=== PATIENT | male | born 1970 | race Caucasian/White ===

== ENCOUNTER 2018-10-27 13:20 | Emergency (ER) | payer BC ==
[2018-10-27] MEDS ORDERED: ETOMIDATE 20 MG/10 ML VIAL IV ONE (13:21)
[2018-10-27] MEDS ORDERED: LIDOCAINE 2% MPF 5 ML VIAL IJ ONE (13:21)
[2018-10-27] MEDS ORDERED: ROCURONIUM 50 MG/5 ML VIAL IV ONE (13:29)
[2018-10-27] MEDS ORDERED: RSI MEDICATION KIT IV ONE (13:29)
--- NOTE | 2018-10-27 14:01 | ER ---
Nurse's Notes [facility] Name: Los Burt Age: 48 yrs Sex: Male : 1970 Arrival Date: 10/27/2018 Time: 13:23 Bed 2 Private MD: Diagnosis: Subdural hematoma Presentation: 10/27 13:20 Presenting complaint: EMS states: pt was found laying down faceup by a family sg friend/technical information specialist, head bleeding and dried pool of blood beside the patient, pt was last seen normal at 1430 10/26/2018 by family/friend per EMS, unsure how long the patient had been down. Family/friend reports to EMS a histor of liver disease and chronic alcoholism, noncompliant on his prescription medications per family/friends reported by EMS. 13:20 Method Of Arrival: EMS: [facility] 13:20 Transition of care: patient was not received from another setting of care. Onset of sg symptoms was October 27, 2018. Risk Assessment: Do you want to hurt yourself or someone else? Unable to obtain. Initial Sepsis Screen: Does the patient meet any 2 criteria? Altered Mental Status. HR > 90 bpm. Does the patient have a suspected source of infection? No. Patient's initial sepsis screen is negative. Care prior to arrival: IV initiated. 18 GA, in the left antecubital area, Glucose check: 131. Mechanism of Injury: Fall unknown, unwitnessed. 13:20 Acuity: RAVIN 1 sg Triage Assessment: 13:20 General: Appears distressed, unkempt, Behavior is unresponsive. Pain: Unable to use sg pain scale. Patient is unresponsive. EENT: Oral mucosa is dry. Neuro: Level of Consciousness is obtunded, unresponsive. Cardiovascular: Heart tones S1 S2 present Capillary refill is sluggish in bilateral fingers. Respiratory: Airway is patent Respiratory effort is relaxed, shallow, Respiratory pattern is hypoventilation. GI: Abdomen is flat, non-distended. : Genitalia appear normal. Derm: Skin is dry, Skin is pale, Skin temperature is cool. Musculoskeletal: Swelling present in left occipital area and right occipital area. Injury Description: Bruise sustained to chest and right arm is green, purple, yellow, Laceration sustained to right occipital area is jagged, 0.5 to 2.5 cm long, not bleeding, is bleeding profusely at this time. Historical: - Allergies: 14:14 Unable to obtain; ss - Home Meds: 14:14 Unable to obtain [Active]; ss - PMHx: 14:50 Cancer; sg - PSHx: 14:14 Unable to obtain; ss - Immunization history:: Adult Immunizations unknown. - Social history:: Smoking status: unknown. - Ebola Screening: : Unable to complete screening because. - Unable to obtain history due to: comatose state. Screenin:48 Abuse screen: unknwon. Nutritional screening: unknown. Tuberculosis screening: unknown. sv Fall Risk No fall in past 12 months (0 pts). No secondary diagnosis (0 pts). IV access (20 points). Ambulatory Aid- None/Bed Rest/Nurse Assist (0 pts). Gait- Impaired (20 pts.). Mental Status- Overestimates/Forgets Limitations (15 pts.). Total Bobby Fall Scale indicates High Risk Score (45 or more points). Fall prevention measures have been instituted. Side Rails Up X 2 Placed Close to Nursing Station Frequent Obs/Assessments Occuring As available patient and family educated on Fall Prevention Program and Strategies. Assessment: 13:25 Reassessment: Patient appears in no apparent distress at this time. pt remains sg unresponsive at this time, preparing for intubation at this time, awaiting transfer to CT scan after intubation per order. 13:40 Reassessment: Patient appears in no apparent distress at this time. No changes from previously documented assessment. 14:15 Reassessment: Patient appears in no apparent distress at this time. Patient and/or sg family updated on plan of care and expected duration. Pain level reassessed. pt mother and pt family at bedside at this time, will continue to monitor. 14:20 Reassessment: [facility] dispatch reports that their ETA is 25 minutes. sv 14:30 Reassessment: Patient appears in no apparent distress at this time. pt mother at bedside at this time, pt speaking with about pt condition, pt remains orally intubated and sedated at this time. 14:50 General: Appears distressed, well groomed, well developed, well nourished, Behavior is sg unresponsive. Neuro: Level of Consciousness is unresponsive, Pupils are sluggish, dilated. Cardiovascular: Patient's skin is warm and dry. Respiratory: Airway via oral intubation Respiratory effort is relaxed, Respiratory pattern is symmetrical. : Mcdermott in place Urine is clear, 1000 mL output noted, mcdermott clamped at this time. Derm: Skin is pale, dried blood noted to head, face. 14:56 Reassessment: [facility] at bedside for pt transfer to receiving facility ER, report sg given to flight nurse. Vital Signs: 13:17 BP 111 / 72; Pulse 111; Resp 20; Pulse Ox 100% on R/A; sv 13:28 BP 99 / 70; Pulse 128; Resp 20; Temp 99.2(C); Pulse Ox 100% on ETT ambu; sv 13:45 BP 102 / 71; Pulse 131; Resp 20; Pulse Ox 100% on 60% FiO2 ETT vent; sv 13:58 Weight 68.04 kg; ss 14:00 BP 106 / 75; Pulse 110; Resp 24; Temp 100.3; Pulse Ox 100% on 60% FiO2 ETT vent; sv 14:13 BP 106 / 75; Pulse 111; Pulse Ox 100% on ETT vent; ss 14:15 BP 107 / 71; Pulse 112; Resp 24; Temp 100.4(C); Pulse Ox 100% on 60% FiO2 ETT vent; sv 14:47 BP 111 / 81; Pulse 106; Resp 24; Temp 100.5(C); Pulse Ox 100% on 60% FiO2 ETT vent; sv ED Course: 13:22 Rigid cervical collar applied and checked by physician. sg 13:23 Patient arrived in ED. sv 13:27 Assisted provider with intubation using 7.5 mm ETT via oral route. ET tube secured at sv 23cm at the teeth. Set up intubation tray. Intubated by Mike Yarbrough MD Placement verified by CO2 detector w/ + color change, auscultating bilateral breath sounds. 13:28 Mike Yarbrough MD is Attending Physician. rn 13:30 Mcdermott cath inserted, using sterile technique, 16 Fr., by me, balloon inflated, to ph gravity drainage, other Criticore Mcdermott inserted. 13:30 Patient has correct armband on for positive identification. Placed in gown. Bed in low sv position. Side rails up X2. Seizure precautions initiated. equipment monitor phototypesetting on. Pulse ox on. NIBP on. 13:45 CT Traumagram (Head C Spine CAP wo con) In Process Unspecified. EDMS 13:45 Arm band placed on. sg 14:15 Assisted provider with central line placement. Set up central line tray. Triple lumen sv line placed in right femoral. Line placed by Mike Yarbrough MD Placement verified by blood return, Dressed with Tegaderm, Blood was collected. Patient tolerated well. Before procedure, did Practitioner(s) obtain informed consent? No. Patient \T\ family education about procedure, CLABSI prevention and S/S of infection? No. Time-out/Briefing performed prior to start of procedure? Yes. Was handwashing/sanitizing done immediately prior to procedure? Yes. Was patient positioned to in a way to prevent air embolism? Yes. Was procedure site sterilized? Yes, with chlorhexidine. Was the site allowed to dry? Yes. Was local anesthetic and/or sedation utilized? Yes. During the procedure, did the Practitioner(s) maintain a sterile field? Yes. Were unused ports clamped during insertion? Yes. Was a 2nd qualified MD obtained after 3 unsuccessful insertion attempts? Yes. Was blood aspirated from each lumen? Yes. After the procedure, did the Practitioner(s) clean the site and apply a sterile dressing? Yes. 14:29 EKG done, by mining engineering technologist. reviewed by Mike Yarbrough MD. dt2 14:41 Chest Single View XRAY In Process Unspecified. EDMS 14:42 Triage completed. sg 14:57 Kelvin Paris, RN is Primary Nurse. sg 15:02 Patient transferred, IV remains in place. intact, No redness/swelling at site. sg Administered Medications: 13:25 Drug: Etomidate 20 mg Route: IVP; Site: left antecubital; sv 13:25 Drug: Rocuronium 50 mg Route: IVP; Site: left antecubital; sv 13:25 Drug: Lidocaine 100 mg Route: IVP; Site: left antecubital; sv 14:27 Drug: NS 0.9% 500 ml Route: IV; Rate: bolus; Site: right femoral; sv 14:28 Drug: Versed 2 mg Route: IVP; Site: right femoral; sv 14:47 Follow up: Response: No adverse reaction sv 14:30 Drug: Mannitol 25% 1 g/kg Route: IV; Rate: per protocol; Site: right femoral; sg 14:47 Drug: NS 0.9% 500 ml Route: IV; Rate: bolus; Site: right femoral; sv 14:47 Drug: D5-NS 1000 ml Route: IV; Rate: 125 ml/hr; Site: right femoral; sv 15:04 Not Given (pt remains calm and appears comfortable at this time): Versed 2 mg/hr IVP sg continuous Output: 14:00 Urine: 1000ml (Mcdermott); Total: 1000ml. sv Outcome: 14:00 ER care complete, transfer ordered by . rn 14:45 Transferred Note: Report called to Dayo MORROW for MH Trauma sg 15:00 Transferred by helicopter to [facility], Transfer form completed. sg 15:00 Condition: good 15:00 Instructed on family instructed on the need for transfer by , pt mother and family stated understanding 15:05 Patient left the ED. Signatures: Dispatcher [employer] Adele Zaragoza RN RN Kelvin Paris RN RN Mike Yarbrough MD MD rn Smirch, Shelby, RN RN Neena Albarran RN RN ph Teague, Danielle dt2 Corrections: (The following items were deleted from the chart) 14:48 14:40 Mannitol 25% 1 g/kg IV at per protocol in right femoral sg sg 14:50 14:14 PMHx: Unable to obtain; sg 17:40 15:00 Discharged to home ambulatory, sg
--- NOTE | 2018-10-27 14:01 | EDPHYS ---
Physician Documentation [facility] Name: Los Burt Age: 48 yrs Sex: Male : 1970 Arrival Date: 10/27/2018 Time: 13:23 Bed 2 Private MD: ED Physician Mike Yarbrough HPI: 10/27 13:40 This 48 yrs old Male presents to ER via Unassigned with complaints of rn unresponsive. 13:41 The patient presents with decreased responsiveness. Onset: The symptoms/episode rn began/occurred at an unknown time. Possible causes: alcohol, head injury. 13:41 Current symptoms: In the emergency department the patient's symptoms are unchanged from rn the initial presentation. It is unknown whether or not the patient has had similar symptoms in the past. Per EMS, found unresponsive covered in blood this AM by neighbor. Known alcoholic with gastric and throat cancer, still drinks, + multiple falls in past. No information given other than dry pool of blood on floor. . Historical: - Allergies: 14:14 Unable to obtain; ss - Home Meds: 14:14 Unable to obtain [Active]; ss - PMHx: 14:50 Cancer; sg - PSHx: 14:14 Unable to obtain; ss - Immunization history:: Adult Immunizations unknown. - Social history:: Smoking status: unknown. - Ebola Screening: : Unable to complete screening because. - Unable to obtain history due to: comatose state. ROS: 13:41 Unable to obtain ROS due to comatose state. rn Exam: 13:41 Constitutional: Thin male with dry blood on face/scalp Head/Face: + dry blood on rn right face and scalp, 1cm laceration on occiput, no active bleeding Eyes: Pupils 4mm, unreactive. Vital Signs: 13:17 BP 111 / 72; Pulse 111; Resp 20; Pulse Ox 100% on R/A; sv 13:28 BP 99 / 70; Pulse 128; Resp 20; Temp 99.2(C); Pulse Ox 100% on ETT ambu; sv 13:45 BP 102 / 71; Pulse 131; Resp 20; Pulse Ox 100% on 60% FiO2 ETT vent; sv 13:58 Weight 68.04 kg; ss 14:00 BP 106 / 75; Pulse 110; Resp 24; Temp 100.3; Pulse Ox 100% on 60% FiO2 ETT vent; sv 14:13 BP 106 / 75; Pulse 111; Pulse Ox 100% on ETT vent; ss 14:15 BP 107 / 71; Pulse 112; Resp 24; Temp 100.4(C); Pulse Ox 100% on 60% FiO2 ETT vent; sv 14:47 BP 111 / 81; Pulse 106; Resp 24; Temp 100.5(C); Pulse Ox 100% on 60% FiO2 ETT vent; sv Procedures: 14:00 Intubation: Ventilated with 100% NRB prior to procedure. O2 saturation prior to airborne weapons technical manager was 92 %. Intubated orally using # 4 Dionisio blade with 7.5 mm ETT. was successful on first attempt. Cricoid pressure applied during procedure. Tube secured with ETT myers at right side of mouth measured 23 cm at teeth. Placement verified by CO2 detector with (+) color change, auscultating bilateral breath sounds, O2 saturation after procedure was 97 %. Patient tolerated well. MDM: 13:28 Patient medically screened. rn 13:56 ED course: Pt with large subdural hematoma with midline shift, no other acute findings rn on ct scans, mannitol ordered, is intubated. . 14:43 ED course: Pt with some response to pain when placing central line. Family updated. rn Transferred to [facility]. . 10/27 13:28 Order name: Basic Metabolic Panel rn 10/27 13:28 Order name: CBC with Diff rn 10/27 13:28 Order name: Creatinine for Radiology; Complete Time: 14:22 rn 10/27 13:28 Order name: Type And Screen rn 10/27 13:33 Order name: PT-INR rn 10/27 13:33 Order name: Ptt, Activated rn 10/27 13:28 Order name: CT Traumagram (Head C Spine CAP wo con); Complete Time: 14:22 rn 10/27 13:41 Order name: ETOH Level rn 10/27 14:28 Order name: CBC Smear Scan EDCO 10/27 14:36 Order name: Chest Single View XRAY 10/27 13:28 Order name: Labs collected and sent; Complete Time: 14:28 rn Administered Medications: 13:25 Drug: Etomidate 20 mg Route: IVP; Site: left antecubital; sv 13:25 Drug: Rocuronium 50 mg Route: IVP; Site: left antecubital; sv 13:25 Drug: Lidocaine 100 mg Route: IVP; Site: left antecubital; sv 14:27 Drug: NS 0.9% 500 ml Route: IV; Rate: bolus; Site: right femoral; sv 14:28 Drug: Versed 2 mg Route: IVP; Site: right femoral; sv 14:47 Follow up: Response: No adverse reaction sv 14:30 Drug: Mannitol 25% 1 g/kg Route: IV; Rate: per protocol; Site: right femoral; sg 14:47 Drug: NS 0.9% 500 ml Route: IV; Rate: bolus; Site: right femoral; sv 14:47 Drug: D5-NS 1000 ml Route: IV; Rate: 125 ml/hr; Site: right femoral; sv 15:04 Not Given (pt remains calm and appears comfortable at this time): Versed 2 mg/hr IVP sg continuous Disposition: 13:56 Critical Care:. rn Disposition: 10/27/18 14:00 Transfer ordered to [facility]. Diagnosis is Subdural hematoma. - Reason for transfer: Higher level of care. - Accepting physician is . - Condition is Serious. - Problem is new. - Symptoms are unchanged. Critical care time excluding procedures: 13:56 Critical care time: Bedside Care: 25 minutes, Consultation: 5 minutes. Total time: 30 rn minutes Signatures: Dispatcher [employer] Adele Zaragoza RN ODALYS Kelvin Paris RN RN sg Nieto, Roman, MD MD rn Smirch, Shelby, RN RN ss Corrections: (The following items were deleted from the chart) 14:50 14:14 PMHx: Unable to obtain; ss sg 15:05 14:00 10/27/2018 14:00 Transfer ordered to [facility]. sg Diagnosis is Subdural hematoma. Reason for transfer: Higher level of care. Accepting physician is . Condition is Serious. Problem is new. Symptoms are unchanged. rn
--- NOTE | 2018-10-27 14:05 | RAD REPORT ---
EXAM DESCRIPTION: CT - Head C Spine Cap Wo Con - 10/27/2018 1:45 pm TECHNIQUE: Computed axial tomography of the head and cervical spine was obtained. Coronal and sagitt al reconstruction was performed Computed axial tomography of the chest, abdomen and pelvis was obtained. Contrast was not requested. All CT scans are performed using dose optimization technique as appropriate and may include automated exposure control or mA/KV adjustment according to patient size. CLINICAL HISTORY: Head and neck injury with chest and abdominal pain status post fall COMPARISON: None FINDINGS: Large left subdural hematoma along the left frontal, left temporal and parietal convexitie s extending along the left anterior falx. Marked compression of the left lateral ventricle. Shift of the midline structures 14 millimeters towards the right. The third ventricle is likely compressed due to the shift with dilatation of the right lateral ventricle. A skull fracture is not seen A cervical fracture is not seen. No dislocation is noted. The evaluation of mediastinum, jolie, vessels, solid organs and bowel are limited secondary to the lac k of contrast administration. A mediastinal hematoma is not noted. A pleural effusion is not seen. A lung contusion is not present. Bronchiectasis and scarring within the upper lobes. The liver,spleen, pancreas, adrenals,kidneys and bladder do not demonstrate a traumatic injury. Fatty liver. It appears that the patient has had gastric pull-through into the chest. Staples catheter within the bladder. Postsurgical changes involving spine Endotracheal and nasogastric tubes in place IMPRESSION: 1. Large acute left subdural hematoma 2. A cervical fracture is not visualized. 3. No traumatic abnormality involving the chest/abdomen/pelvis.
[2018-10-27 14:06] LABS: Absolute Lymphocytes (CBC) 0.5 K/uL (0.7-4.9); Absolute Monocytes 0.8 K/uL (0.1-1.3); Absolute Neutrophil 4.7 K/uL (1.8-8.0); Basophils % 0.8 % (0-1.3); Eosinophils % 0.1 % (0-4.4); Hematocrit 31.4 % (39.6-49.0); Lymphocytes % 8.1 % (15.3-44.8); MPV 8.9 fL (7.6-11.3); Monocytes % 13.1 % (3.3-12.3); Protime INR 1.09; RBC Red Blood Cell Count 3.53 M/uL (4.33-5.43)
[2018-10-27] MEDS ORDERED: PROPOFOL 200 MG/20 ML VIAL IV ONE (14:20)
[2018-10-27] MEDS ORDERED: MIDAZOLAM HCL 2 MG/2 ML INJ ONE (14:21)
[2018-10-27 14:27] LABS: Blood Morphology Comment NOTED (NOT SEEN); Hypochromasia 1+; Macrocytosis 1+; Platelet Estimate ADEQ; Urine White Blood Cell Casts OK
[2018-10-27] MEDS ORDERED: NA CHLORIDE 0.9% 1,000 ML ONE (14:36)
[2018-10-27 14:37] LABS: BUN Blood Urea Nitrogen 8 mg/dL (7-18); Bicarbonate 27 mmol/L (21-32); Glucose Level 105 mg/dL (74-106); Sodium Level 123 mmol/L (136-145)
[2018-10-27 14:38] LABS: Potassium 2.9 mmol/L (3.5-5.1)
[2018-10-27] MEDS ORDERED: MIDAZOLAM HCL 100 MG/NS 100 ML IV PRN ×2 (14:38)
[2018-10-27] MEDS ORDERED: D5 0.9 NS 1,000 ML IV ONE (14:55)
--- NOTE | 2018-10-27 14:56 | RAD REPORT ---
EXAM DESCRIPTION: [place] Single View10/27/2018 2:41 pm CLINICAL HISTORY: Chest pain COMPARISON: none FINDINGS: Endotracheal and nasogastric tubes in good position. Chronic upper lobe opacities are seen. Old right rib fracture noted. The heart is normal size
[2018-10-27] MEDS ORDERED: MANNITOL 20% IV ONE (15:00)
[2018-10-27] MEDS ORDERED: ONDANSETRON 4 MG (ODT) TAB ONE (15:22)
--- NOTE | 2018-10-27 20:32 | EKG ---
Test Date: 2018-10-27 Test Time: 14:24:48 Spool Sorter: GLENN MEASUREMENT RESULTS: Intervals: Rate: 110 NC: 170 QRSD: 78 QT: 354 QTc: 479 [place]: P: 70 NC: 170 QRS: 83 T: 54 INTERPRETIVE STATEMENTS: Sinus tachycardia Otherwise normal ECG No previous ECG available for comparison Electronically Signed On 10-27-18 20:31:36 MARKETING EDITOR by Jan Hutchinson
== END 2018-10-27 15:05 | disposition short-term general hospital (02) ==
LOC: ER 13:20
PROC: 0BH17EZ Insertion of Endotracheal Airway into Trachea, Via Natural or Artificial Opening (ICD-10-PCS; principal; 2018-10-27)
PROC: 06HM33Z Insertion of Infusion Device into Right Femoral Vein, Percutaneous Approach (ICD-10-PCS; 2018-10-27)
DX: S06.5X9A Traumatic subdural hemorrhage with loss of consciousness of unspecified duration, initial encounter (principal); W19.XXXA Unspecified fall, initial encounter; Y93.9 Activity, unspecified; Y92.9 Unspecified place or not applicable; Z85.01 Personal history of malignant neoplasm of esophagus; Z85.89 Personal history of malignant neoplasm of other organs and systems; F10.20 Alcohol dependence, uncomplicated
CPT/HCPCS: 36415; 70450; 71045; 71250; 72125; 80048; 80320; 85025; 85610; 85730; 86850; 86900; 86901; 93005; 94002; J2250; J2704; J7030